=== PATIENT | male | born 1965 | race Two or more races ===

== ENCOUNTER 2019-07-09 01:54 | Emergency (ER) | payer OTHER ==
[~2019-07-09] VITALS: Ht 182.9 cm; Wt 79.4 kg
--- NOTE | 2019-07-09 02:23 | NUR ---
PT AMBULATORY. C/O RLE ABRASION. 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 MD AT BEDSIDE FOR EVAL. PLACED ON MONITOR AND PULSE OX. VSS. NO ACUTE DISTRESS NOTED.
[2019-07-09] MEDS ORDERED: CEPHALEXIN MONOHYDRATE 500 MG CAPSULE PO ONE ×2 (02:28→02:30)
[2019-07-09] MEDS ORDERED: TDAP [DIPH/PERTUSSIS/TET] 0.5 ML VIAL IM ONE ×2 (02:29→02:30)
--- NOTE | 2019-07-09 02:38 | NUR ---
EMT AT BEDSIDE FOR WOUND CARE
--- NOTE | 2019-07-09 05:01 | NUR ---
Patient discharged to home in stable condition. Written and verbal after care instructions given. Patient verbalizes understanding of instruction and RX. Pt ambulatory with steady gait. Pt wheeled out to the E.D. Waiting room. VSS.
[2019-07-09 05:02] VITALS: BP 132/75
== END 2019-07-09 05:04 | disposition home or self-care (01) ==
LOC: ER 01:54
DX: S80.811A Abrasion, right lower leg, initial encounter (principal); X58.XXXA Exposure to other specified factors, initial encounter; Y93.89 Activity, other specified; Y92.89 Other specified places as the place of occurrence of the external cause; Y99.8 Other external cause status
CPT/HCPCS: 73590; 90471; 90715; 99283; A6403

== ENCOUNTER 2020-10-24 11:44 | Emergency (ER) | payer OTHER ==
[~2020-10-24] VITALS: Ht 185.4 cm; Wt 95.3 kg
[2020-10-24 11:51] VITALS: BP 134/88
== END 2020-10-24 14:09 ==
LOC: ER 11:44
DX: S00.83XA Contusion of other part of head, initial encounter (principal); S39.81XA Other specified injuries of abdomen, initial encounter; H10.211 Acute toxic conjunctivitis, right eye; Z02.89 Encounter for other administrative examinations; X58.XXXA Exposure to other specified factors, initial encounter; Y93.89 Activity, other specified; Y92.511 Restaurant or cafe as the place of occurrence of the external cause; Y99.8 Other external cause status